=== PATIENT | male | born 1990 | race Caucasian/White ===

== ENCOUNTER 2017-09-16 20:33 | Emergency (ER) | payer MEDICAID, OTHER ==
[~2017-09-16] VITALS: Ht 165.1 cm; Wt 79.4 kg
[~2017-09-16 20:33] MED LIST: MIRT15TA PO
[2017-09-16 20:42] VITALS: BP 149/63
--- NOTE | 2017-09-16 20:43 | NUR ---
TO LOBBY A/W BED AND FOR XRAY , BIBIANA MUNGUIA ERMD NOTED
--- NOTE | 2017-09-16 21:29 | NUR ---
PT TAKEN TO BED 10
--- NOTE | 2017-09-16 21:32 | NUR ---
Dr. Mills evaluating patient at bedside.
[2017-09-16 21:38] VITALS: BP 147/77
--- NOTE | 2017-09-16 21:38 | NUR ---
Patient discharged with v/s stable. Written and verbal after care instructions given and explained. Patient alert, oriented and verbalized understanding of instructions. Ambulatory with steady gait. All questions addressed prior to discharge. ID band removed. Patient advised to follow up with PMD. Rx of ACETAMINOPHEN 500MG, CLOTRIMAZOLE 1% TOP CREAM, given. Patient educated on indication of medication including possible reaction and side effects. Opportunity to ask questions provided and answered.
== END 2017-09-16 21:38 | disposition home or self-care (01) ==
LOC: MED 20:33
DX: B35.3 Tinea pedis (principal)
CPT/HCPCS: 99283

== ENCOUNTER 2019-03-10 06:36 | Emergency (ER) | payer OTHER ==
[~2019-03-10] VITALS: Ht 162.6 cm; Wt 63.5 kg
[2019-03-10 06:49] VITALS: BP 133/64
--- NOTE | 2019-03-10 07:03 | NUR ---
29 Y/O MALE PRESENTS TO ED, C/O CHEST PAIN 01/19; DOES NOT RADIATE. PT STATES DRINKING SEVERAL BOTTLES OF HARD LIQUOR LAST NIGHT AND PASSING OUT; STATES THE USE OF METHAMPHETAMINE, UNKNOWN AMOUNT. PT WOKE UP AROUND 0200 THIS MORNING WITH SHARP PAIN ON CHEST. PT DENIES ANY SOB; LUNG SOUNDS BILAT CLEAR. PT PRESENTS WITH TREMORS DURING ASSESSMENT. DENIES ANY HX OF SEIZURES. PT ABLE TO AMBULATE WITH STEADY GAIT. PT AT STABLE CONDITION. PLACED PT ON MONITOR. ERMD MADE AWARE. WILL CONTINUE TO MONITOR.
--- NOTE | 2019-03-10 07:10 | NUR ---
EKG PERFORMED AT BEDSIDE
--- NOTE | 2019-03-10 07:15 | NUR ---
RECEIVED REPORT FROM GELA MENESES.
--- NOTE | 2019-03-10 07:35 | NUR ---
Patient discharged with v/s stable. Written and verbal after care instructions given and explained. Patient verbalized understanding. Ambulatory with steady gait. All questions addressed prior to discharge. Advised to follow up with PMD.
[2019-03-10 07:38] VITALS: BP 126/71
== END 2019-03-10 07:35 | disposition home or self-care (01) ==
LOC: MED 06:36
DX: F41.0 Panic disorder [episodic paroxysmal anxiety] (principal); R03.0 Elevated blood-pressure reading, without diagnosis of hypertension; F17.200 Nicotine dependence, unspecified, uncomplicated; F15.90 Other stimulant use, unspecified, uncomplicated; Z91.013 Allergy to seafood; Z79.899 Other long term (current) drug therapy; Z85.9 Personal history of malignant neoplasm, unspecified
CPT/HCPCS: 93005; 99283

== ENCOUNTER 2019-03-13 13:53 | Emergency (ER) | payer OTHER ==
[~2019-03-13] VITALS: Ht 172.7 cm; Wt 65.8 kg
[2019-03-13 13:55] VITALS: BP 115/76
--- NOTE | 2019-03-13 13:55 | NUR ---
PT BIB [place] [employer], AMBULATORY
[2019-03-13] MEDS ORDERED: LORazepam 2 MG/ML VIAL IM ONE (14:30)
[2019-03-13] MEDS ORDERED: LORazepam 2 MG/ML VIAL ONE (14:31)
--- NOTE | 2019-03-13 14:42 | NUR ---
PT TO ED WITH CHRISTIAN SUTHERLAND FOR OKAY TO BOOK. PT IS TACHYCARDIC AT 140S. PT IN CHAIR C FOR EVJORDIN.
[2019-03-13 14:55] VITALS: BP 121/74
--- NOTE | 2019-03-13 14:55 | NUR ---
Patient discharged with v/s stable. Written and verbal after care instructions given and explained. Patient verbalized understanding. Police with in custody. All questions addressed prior to discharge. Advised to follow up with PMD.
== END 2019-03-13 14:55 ==
LOC: MED 13:53
DX: R00.0 Tachycardia, unspecified (principal); F15.90 Other stimulant use, unspecified, uncomplicated; Z91.013 Allergy to seafood; Z79.899 Other long term (current) drug therapy
CPT/HCPCS: 96372; 99283; J2060

== ENCOUNTER 2019-07-23 23:53 | Emergency (ER) | payer OTHER ==
[~2019-07-23] VITALS: Ht 160 cm; Wt 56.7 kg
[2019-07-24] VITALS: BP 136/93
--- NOTE | 2019-07-24 | NUR ---
KARRI NATARAJAN AT CHAIR EVALUATING PT
--- NOTE | 2019-07-24 | NUR ---
Pt ambulatory to chair B.
[2019-07-24] MEDS ORDERED: ONDANSETRON 4 MG/2 ML VIAL IM ONE (00:05)
[2019-07-24] MEDS ORDERED: KETOROLAC 60 MG/2 ML VIAL IM ONE (00:05)
--- NOTE | 2019-07-24 00:06 | NUR ---
29 YO MALE BIBA C/C OF 11/19 CRAMPING ABDOMINAL PAIN IN ALL QUADRANTS THAT PAIN BEGAN 4 DAYS AGO. PER PATIENT LBM WAS 8. PT STATES HE HAS NOT BEEN EATING OR DRINKING FLUIDS AND HAS BEEN CONSUMING VODKA. PT STATES HE HAS EXPERIENCED NAUSEA AND VOMITING. DENIES DIARRHEA, COUGH, FEVER, AND SOB. PT RESTING COMFORTABLY IN CHAIR, DOES NOT APPEAR TO BE IN DISTRESS. NO MED HX NO RX NKA
--- NOTE | 2019-07-24 00:07 | NUR ---
[facility] AT CHAIR DRAWING BLOOD
[2019-07-24 00:14] LABS: BASOPHILS # (AUTO) 0.1 K/uL (0.00-0.22); BASOPHILS % (AUTO) 1.2 % (0.0-2.0); EOSINOPHILS % (AUTO) 0.1 % (0.0-4.0); HEMATOCRIT 41.6 % (36-52); HEMOGLOBIN 13.9 g/dL (12.0-18.0); LYMPHOCYTES # (AUTO) 1.5 K/uL (2.0-11.5); LYMPHOCYTES % (AUTO) 12.9 % (20.5-51.1); MEAN CORPUSCULAR HEMOGLOBIN 32 pg (27-31); MEAN CORPUSCULAR HGB CONC 33 g/dL (33-37); MEAN CORPUSCULAR VOLUME 95.6 fL (80-94); MONOCYTES % (AUTO) 8.7 % (1.7-9.3); NEUTROPHILS % (AUTO) 77.1 % (42.2-75.2); PLATELET COUNT (AUTO) 374 K/uL (140-450); RED BLOOD CELL COUNT(AUTO) 4.35 MIL/uL (4.20-6.10); RED CELL DISTRIBUTION WIDTH 15.6 % (11.6-13.7); WHITE BLOOD COUNT (AUTO) 11.6 K/uL (4.8-10.8)
[2019-07-24] MEDS ORDERED: LORazepam 2 MG/ML VIAL IVP ONE (00:20)
[2019-07-24] MEDS ORDERED: MULTIVITAMIN-12 10 ML, THIAMINE 100 MG, FOLIC ACID 1 MG, MAGNESIUM SULFATE 50% 2,000 MG... IV SCH ×5 (00:20)
--- NOTE | 2019-07-24 00:26 | NUR ---
PT TAKEN TO ER BED 7 VIA W/C
[2019-07-24 00:28] LABS: ALBUMIN 4.6 g/dL (3.4-5.0); ANION GAP 19.8 (8-16); CARBON DIOXIDE 24.2 mmol/L (21-32); CREATININE 1.2 mg/dL (0.6-1.3); TOTAL BILIRUBIN 0.7 mg/dL (0.0-1.0)
[2019-07-24] MEDS ORDERED: MAG SULF 2000 MG/WATER PREMIX 50 ML IV ONE (00:30)
[2019-07-24] MEDS ORDERED: THIAMINE 100 MG TAB ONE (00:30)
[2019-07-24] MEDS ORDERED: FOLIC ACID 1 MG TAB ONE (00:30)
--- NOTE | 2019-07-24 00:30 | NUR ---
EKG PERFORMED AT BEDSIDE
[2019-07-24] MEDS ORDERED: MULTIVITAMIN-12 10 ML VIAL IV ONE (00:31)
--- NOTE | 2019-07-24 00:45 | NUR ---
PT PLACED ON MONITOR. SEIZURE PRECAUTIONS IMPLEMENTED. PT RESTING IN BED.
--- NOTE | 2019-07-24 01:30 | NUR ---
AMBUALTORY WITH STEADY GAIT. ALERT TO NAME, BIRTHDAY, PLACE, EVENT. IV REMOVED; CATH INTACT. OKAY TO D/C PER DR GREENBERG.
--- NOTE | 2019-07-24 01:37 | NUR ---
Patient discharged with v/s stable. Written and verbal after care instructions given and explained. Patient alert, oriented and verbalized understanding of instructions. Ambulatory with steady gait. All questions addressed prior to discharge. ID band removed. Patient advised to follow up with PMD. Rx of PROTONIX, ZOFRAN given. Patient educated on indication of medication including possible reaction and side effects. Opportunity to ask questions provided and answered.
[2019-07-24 01:38] VITALS: BP 127/74
== END 2019-07-24 01:37 | disposition home or self-care (01) ==
LOC: MED 23:53
DX: K29.20 Alcoholic gastritis without bleeding (principal); R11.10 Vomiting, unspecified; F15.90 Other stimulant use, unspecified, uncomplicated; Z79.899 Other long term (current) drug therapy; Z91.013 Allergy to seafood
CPT/HCPCS: 36415; 80053; 83690; 85025; 93005; 96365; 96372; 96375; 99284; A9153; G0482; J1885; J2060; J2405; J3411; J3475; J3490